=== PATIENT | female | born 1945 | race Caucasian/White ===

== ENCOUNTER 2017-10-20 00:42 | Inpatient (IN) | payer MEDICARE, OTHER ==
[~2017-10-20] VITALS: Ht 149.9 cm; Wt 77.3 kg
[~2017-10-20 00:42] MED LIST: ALBU8.5H8 INH; AMLO1TAB13 PO; ASPI-974 PO; ATOR40TA3 PO; BUPR300T53 PO; CALC1TAB PO; CLOP75TA15 PO; DIGO250T77 PO; DILT120C51 PO; DULO60CA45 PO; ESOM40CA30 PO; FLUT1DIS4 INH; FURO-150 PO; GABA800T2 PO; HYDR-3686 PO; HYDR-565 PO; LEVO75TA PO; LORA0.5T PO; METF500T PO; POTA10TA15 PO; POTA99TA25 PO; SPIIN INH
[2017-10-20] MEDS ORDERED: methylPREDNISolone sod succ 125mg/2ml vial IV ONE (01:15)
[2017-10-20] MEDS ORDERED: levoFLOXACIN 500mg tablet PO ONE (01:15)
[2017-10-20] MEDS ORDERED: normal saline 1000ML IV soln IVB ONE (01:15)
[2017-10-20] MEDS ORDERED: ipratropium/albuterol 3ml nebule NEB ONE (01:15)
[2017-10-20 03:33] LABS: BASOPHILS % (AUTO) 0.2 % (0-1); EOSINOPHILS # (AUTO) 0.2 X10'3 (0-0.9); EOSINOPHILS % (AUTO) 2.9 % (0-6); HEMATOCRIT 41.4 % (35.0-45.0); HEMOGLOBIN 13.6 g/dl (12.0-16.0); LYMPHOCYTES # (AUTO) 1.1 X10'3 (1.1-4.8); LYMPHOCYTES % (AUTO) 13.5 % (21-51); MEAN CORPUSCULAR HEMOGLOBIN 26.9 PG (27.0-31.0); MEAN CORPUSCULAR HGB CONC 32.8 % (33.0-36.5); MEAN PLATELET VOLUME 7.9 FL (7.4-10.4); MONOCYTES # (AUTO) 0.6 X10'3 (0-0.9); MONOCYTES % (AUTO) 7.8 % (2-12); NEUTROPHILS # (AUTO) 6.3 X10'3 (1.8-7.7); NEUTROPHILS % (AUTO) 75.6 % (42-75); PLATELET COUNT 185 X10'3 (140-440); RED BLOOD COUNT 5.05 X10'6 (4.20-5.60); RED CELL DISTRIBUTION WIDTH 13.5 % (11.5-14.5); WHITE BLOOD COUNT 8.3 X10'3 (4.5-11.0)
[2017-10-20 03:45] LABS: INR 1.1 INR; PARTIAL THROMBOPLASTIN TIME 25 SECONDS (22-32); PROTHROMBIN TIME 11.3 SECONDS (9.0-12.0)
[2017-10-20 03:58] LABS: ALANINE AMINOTRANSFERASE 31 U/L (12-78); ALBUMIN 3.1 G/DL (3.4-5.0); ALBUMIN/GLOBULIN RATIO 0.7 (1.1-1.5); ALKALINE PHOSPHATASE 85 IU/L (46-116); ANION GAP 5 (8-16); ASPARTATE AMINO TRANSFERASE 13 U/L (10-37); BILIRUBIN,TOTAL 0.3 MG/DL (0.1-1.0); BLOOD UREA NITROGEN 7 MG/DL (7-18); BUN/CREATININE RATIO 10.3 (6.6-38.0); CALCIUM 9.4 MG/DL (8.5-10.1); CHLORIDE 98 MMOL/L (99-107); CREATININE 0.68 MG/DL (0.40-0.90); GLUCOSE 173 MG/DL (70-104); MAGNESIUM 1.7 MG/DL (1.5-2.4); PHOSPHORUS 3.4 MG/DL (2.3-4.5); POTASSIUM 4.1 MMOL/L (3.5-5.1); SODIUM 138 MMOL/L (135-145); TOTAL CARBON DIOXIDE 35.1 MMOL/L (24-32); TOTAL PROTEIN 7.5 G/DL (6.4-8.2); eGFR 86 ML/MIN
[2017-10-20] MEDS ORDERED: ondansetron/PF 4mg/2ml inj IV PRN (05:40)
[2017-10-20] MEDS ORDERED: acetaminophen 325mg tablet PO PRN (05:40)
[2017-10-20] MEDS ORDERED: ipratropium/albuterol 3ml nebule NEB PRN (05:45)
[2017-10-20 06:35] LABS: CLARITY,URINE CLEAR (Clear); COLOR,URINE YELLOW (Yellow); GLUCOSE, URINE NEGATIVE (Neg); KETONES,URINE NEGATIVE (Neg); LEUKOCYTE ESTERASE ,URINE MODERATE (Neg); NITRITES, URINE POSITIVE (Neg); OCCULT BLOOD,URINE MODERATE (Neg); PH,URINE 7.5 (4.8-8.0); PROTEIN,URINE NEGATIVE (Neg); UROBILINOGEN,URINE 0.2 E.U/dL (0.2-1.0)
[2017-10-20 06:39] LABS: UA COLLECTION TYPE FOLEY CATH
[2017-10-20 06:55] LABS: BACTERIA,URINE FEW /HPF (Neg); RBC,URINE 0-2 /HPF (0-2); SQUAMOUS EPITHELIAL CELL,UR NONE SEEN /LPF (FEW)
[2017-10-20] MEDS: budesonide 0.5mg/2ml UD nebule IH SCH ×2 (08:38→20:00)
[2017-10-20] MEDS: duloxetine 30mg CAPSULE.DR PO SCH (09:10)
[2017-10-20] MEDS: levoTHYROXINE 75mcg tablet PO SCH (09:11)
[2017-10-20] MEDS: aspirin 325mg tablet PO SCH (09:11)
[2017-10-20] MEDS: pantoprazole 40mg Tablet.DR PO SCH (09:11)
[2017-10-20] MEDS: buPROPion SR 150mg tablet PO SCH ×2 (09:11→20:48)
[2017-10-20] MEDS: clopidogrel 75mg tablet PO SCH (09:11)
[2017-10-20] MEDS: furosemide 20MG tablet PO SCH (09:12)
[2017-10-20] MEDS: metFORMIN 500mg tablet PO SCH ×2 (09:12→20:48)
[2017-10-20] MEDS: digoxin 250mcg (0.25mg) tablet PO SCH (09:14)
[2017-10-20 10:31] LABS: ABG BASE EXCESS 5.4 mmol/L (-2.0-3.0); ABG HCO3 30.5 mmol/L (22.0-26.0); ABG OXYGEN SATURATION 88.1 % (95-98); ABG PCO2 (T) 46.3 mmHg (32.0-45.0); ABG PH (T) 7.437 (7.350-7.450); ABG PO2 (T) 52.4 mmHg (83-108); ALLEN'S TEST Positive; FCOHb 1.4 % (0.5-1.5); FLOW 3 L/min; FMetHb 0.3 % (0.3-1.12); FO2Hb 86.6 % (94-100); TOTAL HEMOGLOBIN 13.8 G/dl (12.0-16.0)
[2017-10-20 12:47] LABS: HEMOGLOBIN A1C 7.6 % (4.5-6.2)
[2017-10-20 19:00] VITALS: BP 173/102
[2017-10-20] MEDS: HYDROcodone/acetaminophen 10/325mg tab PO PRN ×2 (19:09→23:17)
[2017-10-20] MEDS: gabapentin 400mg capsule PO SCH (20:45)
[2017-10-20] MEDS: calcium carbonate/vitamin D3 tablet PO SCH (20:46)
[2017-10-20] MEDS: LORazepam 0.5 MG tablet PO SCH (20:46)
[2017-10-20] MEDS: atorvastatin 20mg tablet PO SCH (20:48)
[2017-10-20] MEDS ORDERED: albuterol 2.5 MG/3 ML nebule NEB PRN (21:00)
[2017-10-20 23:00] VITALS: BP 149/94
[2017-10-21 03:00] VITALS: BP 143/89
[2017-10-21] MEDS: HYDROcodone/acetaminophen 10/325mg tab PO PRN ×4 (03:31→19:12)
[2017-10-21 05:10] LABS: ANION GAP 9 (8-16); BLOOD UREA NITROGEN 11 MG/DL (7-18); BUN/CREATININE RATIO 16.2 (6.6-38.0); CALCIUM 9.9 MG/DL (8.5-10.1); CHLORIDE 92 MMOL/L (99-107); CREATININE 0.68 MG/DL (0.40-0.90); GLUCOSE 123 MG/DL (70-104); POTASSIUM 3.4 MMOL/L (3.5-5.1); SODIUM 135 MMOL/L (135-145); TOTAL CARBON DIOXIDE 34.5 MMOL/L (24-32); eGFR 86 ML/MIN
[2017-10-21 05:13] LABS: BASOPHILS % (AUTO) 0.1 % (0-1); EOSINOPHILS # (AUTO) 0.2 X10'3 (0-0.9); EOSINOPHILS % (AUTO) 2.3 % (0-6); HEMATOCRIT 40.8 % (35.0-45.0); HEMOGLOBIN 13.6 g/dl (12.0-16.0); LYMPHOCYTES # (AUTO) 1.8 X10'3 (1.1-4.8); LYMPHOCYTES % (AUTO) 21.4 % (21-51); MEAN CORPUSCULAR HGB CONC 33.3 % (33.0-36.5); MEAN CORPUSCULAR VOLUME 80.8 FL (78-98); MEAN PLATELET VOLUME 7.9 FL (7.4-10.4); MONOCYTES # (AUTO) 0.8 X10'3 (0-0.9); MONOCYTES % (AUTO) 9.7 % (2-12); NEUTROPHILS # (AUTO) 5.7 X10'3 (1.8-7.7); NEUTROPHILS % (AUTO) 66.5 % (42-75); PLATELET COUNT 212 X10'3 (140-440); RED BLOOD COUNT 5.05 X10'6 (4.20-5.60); RED CELL DISTRIBUTION WIDTH 13.4 % (11.5-14.5); WHITE BLOOD COUNT 8.6 X10'3 (4.5-11.0)
[2017-10-21 07:00] VITALS: BP 148/86
[2017-10-21] MEDS: aspirin 325mg tablet PO SCH (07:35)
[2017-10-21] MEDS: duloxetine 30mg CAPSULE.DR PO SCH (07:35)
[2017-10-21] MEDS: amLODIPine 5mg tablet PO SCH (07:35)
[2017-10-21] MEDS: calcium carbonate/vitamin D3 tablet PO SCH ×2 (07:37→19:09)
[2017-10-21] MEDS: LORazepam 0.5 MG tablet PO SCH ×3 (07:38→21:39)
[2017-10-21] MEDS: metFORMIN 500mg tablet PO SCH ×2 (07:38→19:13)
[2017-10-21] MEDS: buPROPion SR 150mg tablet PO SCH ×2 (07:38→19:15)
[2017-10-21] MEDS: gabapentin 400mg capsule PO SCH ×4 (07:38→21:41)
[2017-10-21] MEDS: pantoprazole 40mg Tablet.DR PO SCH (07:38)
[2017-10-21] MEDS: diltiazem CD 120mg capsule (once-daily) PO SCH (07:39)
[2017-10-21] MEDS: digoxin 250mcg (0.25mg) tablet PO SCH (07:40)
[2017-10-21] MEDS: furosemide 20MG tablet PO SCH (07:40)
[2017-10-21] MEDS: potassium chloride 10mEq ER tablet PO SCH (07:44)
[2017-10-21] MEDS: clopidogrel 75mg tablet PO SCH (07:44)
[2017-10-21] MEDS: levoFLOXACIN-Levaquin 500mg/D5 100 ML IV SCH (07:45)
[2017-10-21] MEDS: levoTHYROXINE 75mcg tablet PO SCH (07:45)
[2017-10-21] MEDS: ipratropium 0.5 MG/2.5ML nebule NEB SCH ×4 (09:00→20:40)
[2017-10-21] MEDS: hydrOXYzine 25 MG tablet PO PRN ×2 (09:14→19:14)
[2017-10-21] MEDS: budesonide 0.5mg/2ml UD nebule IH SCH ×2 (09:49→20:40)
[2017-10-21 11:00] VITALS: BP 151/86
[2017-10-21] MEDS: atorvastatin 20mg tablet PO SCH (21:40)
[2017-10-22] MEDS: ipratropium 0.5 MG/2.5ML nebule NEB SCH ×2 (02:36→08:54)
[2017-10-22 05:33] LABS: BASOPHILS % (AUTO) 0.3 % (0-1); EOSINOPHILS # (AUTO) 0.3 X10'3 (0-0.9); EOSINOPHILS % (AUTO) 3.5 % (0-6); LYMPHOCYTES # (AUTO) 2.4 X10'3 (1.1-4.8); LYMPHOCYTES % (AUTO) 24.2 % (21-51); MEAN CORPUSCULAR HEMOGLOBIN 27.1 PG (27.0-31.0); MEAN CORPUSCULAR HGB CONC 33.3 % (33.0-36.5); MEAN CORPUSCULAR VOLUME 81.4 FL (78-98); MEAN PLATELET VOLUME 7.8 FL (7.4-10.4); MONOCYTES # (AUTO) 0.8 X10'3 (0-0.9); NEUTROPHILS # (AUTO) 6.4 X10'3 (1.8-7.7); PLATELET COUNT 231 X10'3 (140-440); RED BLOOD COUNT 5.15 X10'6 (4.20-5.60); RED CELL DISTRIBUTION WIDTH 13.6 % (11.5-14.5); WHITE BLOOD COUNT 9.9 X10'3 (4.5-11.0)
[2017-10-22 05:56] LABS: ALBUMIN 3.1 G/DL (3.4-5.0); ANION GAP 8 (8-16); BLOOD UREA NITROGEN 16 MG/DL (7-18); BUN/CREATININE RATIO 21.3 (6.6-38.0); CALCIUM 9.4 MG/DL (8.5-10.1); CHLORIDE 90 MMOL/L (99-107); CREATININE 0.75 MG/DL (0.40-0.90); GLUCOSE 147 MG/DL (70-104); POTASSIUM 3.4 MMOL/L (3.5-5.1); SODIUM 132 MMOL/L (135-145); TOTAL CARBON DIOXIDE 34.4 MMOL/L (24-32); eGFR 76 ML/MIN
[2017-10-22 06:00] VITALS: BP 137/76
[2017-10-22] MEDS: gabapentin 400mg capsule PO SCH ×2 (07:26→13:24)
[2017-10-22] MEDS: aspirin 325mg tablet PO SCH (07:26)
[2017-10-22] MEDS: clopidogrel 75mg tablet PO SCH (07:26)
[2017-10-22] MEDS: metFORMIN 500mg tablet PO SCH (07:27)
[2017-10-22] MEDS: duloxetine 30mg CAPSULE.DR PO SCH (07:27)
[2017-10-22] MEDS: buPROPion SR 150mg tablet PO SCH (07:27)
[2017-10-22] MEDS: amLODIPine 5mg tablet PO SCH (07:28)
[2017-10-22] MEDS: digoxin 250mcg (0.25mg) tablet PO SCH (07:29)
[2017-10-22] MEDS: levoTHYROXINE 75mcg tablet PO SCH (07:30)
[2017-10-22] MEDS: potassium chloride 10mEq ER tablet PO SCH (07:30)
[2017-10-22] MEDS: calcium carbonate/vitamin D3 tablet PO SCH (07:30)
[2017-10-22] MEDS: furosemide 20MG tablet PO SCH (07:30)
[2017-10-22] MEDS: pantoprazole 40mg Tablet.DR PO SCH (07:30)
[2017-10-22] MEDS: LORazepam 0.5 MG tablet PO SCH ×2 (07:31→13:24)
[2017-10-22] MEDS: levoFLOXACIN-Levaquin 500mg/D5 100 ML IV SCH (07:31)
[2017-10-22] MEDS: diltiazem CD 120mg capsule (once-daily) PO SCH (07:32)
[2017-10-22] MEDS: budesonide 0.5mg/2ml UD nebule IH SCH (08:00)
[2017-10-22] MEDS ORDERED: NITR100C PO (09:01)
[2017-10-22 11:00] VITALS: BP 105/71
[2017-10-22 12:58] VITALS: BP 105/71
[2017-10-22] MEDS: HYDROcodone/acetaminophen 10/325mg tab PO PRN (13:25)
[2017-10-22] MEDS ORDERED: lactobacillus rhamnosus 10,000 MMU CELLS/CAPSULE PO SCH (20:00)
== END 2017-10-22 14:05 | disposition home health service (06) | DRG 189 ==
LOC: ER 00:42 → ED HOLD 05:36 → PCU 3S 15:35
PROVIDERS: ADMIT Family Medicine; ATTEND Internal Medicine
DX: J96.20 Acute and chronic respiratory failure, unspecified whether with hypoxia or hypercapnia (principal); G93.40 Encephalopathy, unspecified; I48.91 Unspecified atrial fibrillation; I11.0 Hypertensive heart disease with heart failure; I50.9 Heart failure, unspecified; J44.1 Chronic obstructive pulmonary disease with (acute) exacerbation; Z99.81 Dependence on supplemental oxygen; M06.9 Rheumatoid arthritis, unspecified; F32.9 Major depressive disorder, single episode, unspecified; F41.9 Anxiety disorder, unspecified; E11.9 Type 2 diabetes mellitus without complications; E78.5 Hyperlipidemia, unspecified; M19.90 Unspecified osteoarthritis, unspecified site; E03.9 Hypothyroidism, unspecified; E78.00 Pure hypercholesterolemia, unspecified; Z88.0 Allergy status to penicillin; Z88.1 Allergy status to other antibiotic agents; Z88.2 Allergy status to sulfonamides; Z88.8 Allergy status to other drugs, medicaments and biological substances; Z86.711 Personal history of pulmonary embolism; Z87.891 Personal history of nicotine dependence; Z82.49 Family history of ischemic heart disease and other diseases of the circulatory system; Z82.5 Family history of asthma and other chronic lower respiratory diseases; Z83.3 Family history of diabetes mellitus; Z84.89 Family history of other specified conditions; Z79.899 Other long term (current) drug therapy; Z79.82 Long term (current) use of aspirin
CPT/HCPCS: 36415; 36600; 71045; 80048; 80053; 80162; 81001; 82803; 82948; 83036; 83735; 83880; 84100; 84443; 84484; 85018; 85025; 85610; 85730; 87070; 87077; 87088; 87186; 87502; 87503; 93005; 94640; 94760; 96361; 96374; 97110; 97530; 99285; J1956; J2930; J7030; J7626; Q0177

== ENCOUNTER 2018-06-23 16:33 | Inpatient (IN) | payer MEDICARE, OTHER ==
[~2018-06-23] VITALS: Ht 149.9 cm; Wt 72.7 kg
[~2018-06-23 16:33] MED LIST changes: +ALBU8.5H8 IH; -AMLO1TAB13 PO; -CLOP75TA15 PO; -FURO-150 PO; +HYDR-4353 PO; -HYDR-565 PO; +INSU100V5 IJ; +LANTUS SQ; +LEVO500T89 PO; -METF500T PO; +NITR100C6 PO; +NYSPWD TP; -POTA99TA25 PO; +VALS160T2 PO
[2018-06-23] MEDS ORDERED: acetaminophen 325mg tablet PO STA (16:41)
[2018-06-23] MEDS ORDERED: CefTRIAXone 2gm/D5W 50ml 50 ML IV ONE (16:45)
[2018-06-23] MEDS ORDERED: normal saline 1000ML IV soln IV ONE (16:45)
[2018-06-23] MEDS ORDERED: MULT-1085 PO (17:12)
[2018-06-23] MEDS ORDERED: METH1TAB32 PO (17:13)
[2018-06-23] MEDS ORDERED: IRBE150T27 PO (17:14)
[2018-06-23 17:18] LABS: CLARITY,URINE CLOUDY (Clear); COLOR,URINE YELLOW (Yellow); GLUCOSE, URINE NEGATIVE (Neg); KETONES,URINE NEGATIVE (Neg); LEUKOCYTE ESTERASE ,URINE SMALL (Neg); NITRITES, URINE POSITIVE (Neg); OCCULT BLOOD,URINE MODERATE (Neg); PH,URINE 8.5 (4.8-8.0); PROTEIN,URINE NEGATIVE (Neg); UROBILINOGEN,URINE 0.2 E.U/dL (0.2-1.0)
[2018-06-23 17:19] LABS: BASOPHILS % (AUTO) 0.1 % (0-1); EOSINOPHILS # (AUTO) 0.1 X10'3 (0-0.9); EOSINOPHILS % (AUTO) 0.3 % (0-6); HEMATOCRIT 44.3 % (35.0-45.0); HEMOGLOBIN 14.1 g/dl (12.0-16.0); MEAN CORPUSCULAR HEMOGLOBIN 25.9 PG (27.0-31.0); MEAN CORPUSCULAR HGB CONC 31.8 % (33.0-36.5); MEAN CORPUSCULAR VOLUME 81.4 FL (78-98); MONOCYTES # (AUTO) 0.7 X10'3 (0-0.9); MONOCYTES % (AUTO) 3.4 % (2-12); NEUTROPHILS # (AUTO) 18.9 X10'3 (1.8-7.7); NEUTROPHILS % (AUTO) 91.2 % (42-75); PLATELET COUNT 253 X10'3 (140-440); RED BLOOD COUNT 5.44 X10'6 (4.20-5.60); WHITE BLOOD COUNT 20.8 X10'3 (4.5-11.0)
[2018-06-23 17:23] LABS: ALANINE AMINOTRANSFERASE 38 U/L (12-78); ALBUMIN 3.4 G/DL (3.4-5.0); ALBUMIN/GLOBULIN RATIO 0.7 (1.1-1.5); ALKALINE PHOSPHATASE 104 IU/L (46-116); ANION GAP 7 (8-16); ASPARTATE AMINO TRANSFERASE 31 U/L (10-37); BILIRUBIN,TOTAL 0.6 MG/DL (0.1-1.0); BLOOD UREA NITROGEN 6 MG/DL (7-18); BUN/CREATININE RATIO 8.3 (6.6-38.0); CALCIUM 9.3 MG/DL (8.5-10.1); CHLORIDE 94 MMOL/L (99-107); CREATININE 0.72 MG/DL (0.40-0.90); GLUCOSE 176 MG/DL (70-104); MAGNESIUM 1.3 MG/DL (1.5-2.4); POTASSIUM 3.7 MMOL/L (3.5-5.1); SODIUM 133 MMOL/L (135-145); TOTAL CARBON DIOXIDE 32.1 MMOL/L (24-32); eGFR 80 ML/MIN
[2018-06-23 17:31] LABS: UA COLLECTION TYPE FOLEY CATH
[2018-06-23 17:42] LABS: AMORPHOUS PHOSPHATES 3+; TRIPLE PHOSPHATE CRYST 4+ /HPF (NEGATIVE)
[2018-06-23 17:43] LABS: BACTERIA,URINE 4+ /HPF (Neg); MUCUS STRANDS FEW /LPF (Neg); SQUAMOUS EPITHELIAL CELL,UR FEW /LPF (FEW); TRANSITIONAL EPI CELLS,URINE FEW /HPF
[2018-06-23 17:44] LABS: RBC,URINE 0-2 /HPF (0-2)
[2018-06-23 18:06] LABS: PLATELET ESTIMATE NORMAL; TOTAL CELLS COUNTED 100
[2018-06-23 18:07] LABS: TOXIC GRANULATION 1+; TOXIC VACUOLATION FEW
[2018-06-23] MEDS ORDERED: albuterol 2.5 MG/3 ML nebule NEB ONE (19:05)
[2018-06-23] MEDS: normal saline 1000ml 1,000 ML IV SCH (19:19)
[2018-06-23] MEDS ORDERED: magnesium Cl slow-release 64mg tablet PO PRN (19:20)
[2018-06-23] MEDS ORDERED: ondansetron/PF 4mg/2ml inj IV PRN (19:20)
[2018-06-23] MEDS ORDERED: bisacodyl 10mg suppository rectal RC PRN (19:20)
[2018-06-23] MEDS ORDERED: acetaminophen 325mg tablet PO PRN (19:20)
[2018-06-23] MEDS ORDERED: diphenhydrAMINE 25mg capsule PO PRN (19:20)
[2018-06-23] MEDS ORDERED: acetaminophen 650mg rectal suppository RC PRN (19:20)
[2018-06-23] MEDS ORDERED: magnesium 4gm in 100ml NS 100 ML IV PRN (19:20)
[2018-06-23] MEDS ORDERED: diphenhydrAMINE 50 mg/ml inj IV PRN (19:20)
[2018-06-23] MEDS ORDERED: mag hydrox/Alum hydrox/simeth 30ml oral suspension PO PRN (19:20)
[2018-06-23] MEDS ORDERED: metoclopramide 5 mg/ml inj IV PRN (19:20)
[2018-06-23] MEDS ORDERED: magnesium hydroxide 30ml (MOM) UD suspension PO PRN (19:20)
[2018-06-23] MEDS ORDERED: morphine 2 MG/ML inj. syringe IV PRN (19:20)
[2018-06-23] MEDS ORDERED: HYDROmorphone 1 mg/ml syringe IV PRN (19:20)
[2018-06-23] MEDS ORDERED: magnesium 1gm/100ml D5W IVPB 100 ML IV PRN (19:20)
[2018-06-23] MEDS ORDERED: dextrose 50%-water 50ml dispensing syringe IV PRN ×2 (19:25)
[2018-06-23] MEDS ORDERED: dextrose ORAL solution 15 GM/59 ML bottle PO PRN ×2 (19:25)
[2018-06-23] MEDS ORDERED: glucagon, human recombinant 1mg kit SUBCUT PRN (19:25)
[2018-06-23] MEDS ORDERED: MESSAGE TO PHARMACY PO ONE ×2 (19:25→23:55)
[2018-06-23 19:55] LABS: PHOSPHORUS 2.5 MG/DL (2.3-4.5); TROPONIN I < 0.04 NG/ML (0.0-0.05)
[2018-06-23] MEDS ORDERED: CefTRIAXone/D5W-Rocephin 1gm 50 ML IV SCH (20:00)
[2018-06-23] MEDS ORDERED: temazepam 15mg capsule PO PRN (21:00)
[2018-06-23 21:26] LABS: INR 1.1 INR; PARTIAL THROMBOPLASTIN TIME 25 SECONDS (22-32); PROTHROMBIN TIME 11.4 SECONDS (9.0-12.0)
[2018-06-23] MEDS: methylPREDNISolone sod succ 125mg/2ml vial IV SCH (22:53)
[2018-06-23] MEDS: docusate sod 100mg capsule PO SCH (22:53)
[2018-06-23 23:00] VITALS: BP 114/75
[2018-06-23] MEDS: azithromycin/NS 500mg/250ml 250 ML IV SCH (23:05)
[2018-06-24] MEDS ORDERED: albuterol 2.5 MG/3 ML nebule NEB PRN ×2 (00:20→16:20)
[2018-06-24] MEDS: insulin glargine (Lantus) pen - multi-dose SQ SCH ×2 (00:38→21:53)
[2018-06-24 03:00] VITALS: BP 134/87
[2018-06-24] MEDS: normal saline 1000ml 1,000 ML IV SCH (05:51)
[2018-06-24] MEDS: CefTRIAXone/D5W-Rocephin 1gm 50 ML IV SCH ×2 (05:51→18:18)
[2018-06-24 06:35] LABS: BASOPHILS % (AUTO) 0 % (0-1); EOSINOPHILS # (AUTO) 0.2 X10'3 (0-0.9); EOSINOPHILS % (AUTO) 0.9 % (0-6); HEMATOCRIT 39.9 % (35.0-45.0); HEMOGLOBIN 12.5 g/dl (12.0-16.0); LYMPHOCYTES # (AUTO) 0.8 X10'3 (1.1-4.8); LYMPHOCYTES % (AUTO) 3.9 % (21-51); MEAN CORPUSCULAR HEMOGLOBIN 25.9 PG (27.0-31.0); MEAN CORPUSCULAR HGB CONC 31.4 % (33.0-36.5); MEAN CORPUSCULAR VOLUME 82.3 FL (78-98); MEAN PLATELET VOLUME 8.6 FL (7.4-10.4); MONOCYTES # (AUTO) 0.2 X10'3 (0-0.9); MONOCYTES % (AUTO) 0.9 % (2-12); NEUTROPHILS # (AUTO) 20.2 X10'3 (1.8-7.7); NEUTROPHILS % (AUTO) 94.3 % (42-75); PLATELET COUNT 205 X10'3 (140-440); RED BLOOD COUNT 4.85 X10'6 (4.20-5.60); RED CELL DISTRIBUTION WIDTH 14.3 % (11.5-14.5); WHITE BLOOD COUNT 21.4 X10'3 (4.5-11.0)
[2018-06-24 06:47] LABS: ALANINE AMINOTRANSFERASE 43 U/L (12-78); ALBUMIN/GLOBULIN RATIO 0.7 (1.1-1.5); ALKALINE PHOSPHATASE 84 IU/L (46-116); ANION GAP 6 (8-16); ASPARTATE AMINO TRANSFERASE 23 U/L (10-37); BILIRUBIN,TOTAL 0.4 MG/DL (0.1-1.0); BLOOD UREA NITROGEN 9 MG/DL (7-18); BUN/CREATININE RATIO 12.3 (6.6-38.0); CALCIUM 9.1 MG/DL (8.5-10.1); CHLORIDE 100 MMOL/L (99-107); CREATININE 0.73 MG/DL (0.40-0.90); GLUCOSE 277 MG/DL (70-104); MAGNESIUM 1.5 MG/DL (1.5-2.4); POTASSIUM 3.4 MMOL/L (3.5-5.1); SODIUM 139 MMOL/L (135-145); TOTAL CARBON DIOXIDE 32.8 MMOL/L (24-32); TOTAL PROTEIN 7.6 G/DL (6.4-8.2); eGFR 79 ML/MIN
[2018-06-24 07:21] VITALS: BP 151/94
[2018-06-24] MEDS: albuterol 2.5 MG/3 ML nebule NEB SCH ×4 (07:35→19:58)
[2018-06-24] MEDS: docusate sod 100mg capsule PO SCH ×2 (08:28→20:19)
[2018-06-24] MEDS: HYDROcodone/acetaminophen 10/325mg tab PO PRN ×2 (08:28→16:38)
[2018-06-24] MEDS: methylPREDNISolone sod succ 125mg/2ml vial IV SCH ×2 (08:29→20:25)
[2018-06-24] MEDS: insulin Lispro (HumaLOG) vial - multi-dose SQ SCH ×2 (08:52→19:47)
[2018-06-24 11:00] VITALS: BP 136/77
[2018-06-24 15:00] VITALS: BP 136/75
[2018-06-24] MEDS ORDERED: HYDROcodone/acetaminophen 10/325mg tab PO PRN (16:05)
[2018-06-24] MEDS: aspirin 325mg tablet PO SCH (16:05)
[2018-06-24] MEDS ORDERED: hydrOXYzine 25 MG tablet PO PRN (16:05)
[2018-06-24] MEDS ORDERED: ipratropium 0.5 MG/2.5ML nebule IH PRN (16:20)
[2018-06-24] MEDS: levoTHYROXINE 75mcg tablet PO SCH (18:18)
[2018-06-24] MEDS: gabapentin 400mg capsule PO SCH ×2 (18:18→20:20)
[2018-06-24 19:00] VITALS: BP 152/89
[2018-06-24] MEDS: budesonide 0.5mg/2ml UD nebule IH SCH (19:58)
[2018-06-24] MEDS: calcium carbonate/vitamin D3 tablet PO SCH (20:19)
[2018-06-24] MEDS: atorvastatin 20mg tablet PO SCH (20:19)
[2018-06-24] MEDS: lactobacillus rhamnosus 10,000 MMU CELLS/CAPSULE PO SCH (20:20)
[2018-06-24] MEDS: LORazepam 0.5 MG tablet PO SCH (20:25)
[2018-06-24] MEDS: azithromycin/NS 500mg/250ml 250 ML IV SCH (20:28)
[2018-06-24] MEDS ORDERED: insulin glargine (Lantus) pen - multi-dose SQ SCH (21:00)
[2018-06-24 23:00] VITALS: BP 152/89
[2018-06-25 03:00] VITALS: BP 155/96
[2018-06-25] MEDS: CefTRIAXone/D5W-Rocephin 1gm 50 ML IV SCH ×2 (05:37→17:22)
[2018-06-25 05:39] LABS: BASOPHILS % (AUTO) 0 % (0-1); EOSINOPHILS % (AUTO) 0 % (0-6); HEMATOCRIT 38.4 % (35.0-45.0); LYMPHOCYTES # (AUTO) 0.9 X10'3 (1.1-4.8); LYMPHOCYTES % (AUTO) 5.1 % (21-51); MEAN CORPUSCULAR HEMOGLOBIN 25.8 PG (27.0-31.0); MEAN CORPUSCULAR HGB CONC 31.3 % (33.0-36.5); MEAN CORPUSCULAR VOLUME 82.4 FL (78-98); MEAN PLATELET VOLUME 8.5 FL (7.4-10.4); MONOCYTES # (AUTO) 0.3 X10'3 (0-0.9); MONOCYTES % (AUTO) 1.6 % (2-12); NEUTROPHILS % (AUTO) 93.3 % (42-75); PLATELET COUNT 231 X10'3 (140-440); RED BLOOD COUNT 4.66 X10'6 (4.20-5.60); RED CELL DISTRIBUTION WIDTH 14.2 % (11.5-14.5); WHITE BLOOD COUNT 17.1 X10'3 (4.5-11.0)
[2018-06-25 06:12] LABS: ALANINE AMINOTRANSFERASE 39 U/L (12-78); ALBUMIN 2.7 G/DL (3.4-5.0); ALBUMIN/GLOBULIN RATIO 0.6 (1.1-1.5); ALKALINE PHOSPHATASE 78 IU/L (46-116); ANION GAP 4 (8-16); ASPARTATE AMINO TRANSFERASE 18 U/L (10-37); BILIRUBIN,TOTAL 0.3 MG/DL (0.1-1.0); BLOOD UREA NITROGEN 13 MG/DL (7-18); BUN/CREATININE RATIO 19.1 (6.6-38.0); CALCIUM 9.6 MG/DL (8.5-10.1); CHLORIDE 100 MMOL/L (99-107); CREATININE 0.68 MG/DL (0.40-0.90); GLUCOSE 245 MG/DL (70-104); MAGNESIUM 1.7 MG/DL (1.5-2.4); POTASSIUM 3.3 MMOL/L (3.5-5.1); SODIUM 140 MMOL/L (135-145); TOTAL CARBON DIOXIDE 35.6 MMOL/L (24-32); TOTAL PROTEIN 7.3 G/DL (6.4-8.2); eGFR 85 ML/MIN
[2018-06-25 07:00] VITALS: BP 156/103
[2018-06-25] MEDS: duloxetine 30mg CAPSULE.DR PO SCH (07:17)
[2018-06-25] MEDS: aspirin 325mg tablet PO SCH (07:17)
[2018-06-25] MEDS: calcium carbonate/vitamin D3 tablet PO SCH ×2 (07:17→21:16)
[2018-06-25] MEDS: levoTHYROXINE 75mcg tablet PO SCH (07:18)
[2018-06-25] MEDS: lactobacillus rhamnosus 10,000 MMU CELLS/CAPSULE PO SCH ×2 (07:18→21:16)
[2018-06-25] MEDS: pantoprazole 40mg Tablet.DR PO SCH (07:18)
[2018-06-25] MEDS: docusate sod 100mg capsule PO SCH ×2 (07:19→19:50)
[2018-06-25] MEDS: LORazepam 0.5 MG tablet PO SCH ×3 (07:19→21:16)
[2018-06-25] MEDS: potassium chloride 10mEq ER tablet PO SCH (07:19)
[2018-06-25] MEDS: gabapentin 400mg capsule PO SCH ×4 (07:19→21:16)
[2018-06-25] MEDS: methylPREDNISolone sod succ 125mg/2ml vial IV SCH (07:19)
[2018-06-25] MEDS: HYDROcodone/acetaminophen 10/325mg tab PO PRN ×2 (07:20→12:16)
[2018-06-25] MEDS: digoxin 250mcg (0.25mg) tablet PO SCH (07:33)
[2018-06-25] MEDS: albuterol 2.5 MG/3 ML nebule NEB SCH ×4 (07:37→21:00)
[2018-06-25] MEDS: budesonide 0.5mg/2ml UD nebule IH SCH ×2 (07:37→20:00)
[2018-06-25] MEDS ORDERED: buPROPion SR 150mg tablet PO SCH (08:00)
[2018-06-25] MEDS ORDERED: diltiazem CD 120mg capsule (once-daily) PO SCH (08:00)
[2018-06-25] MEDS: insulin Lispro (HumaLOG) vial - multi-dose SQ SCH ×3 (08:39→19:57)
[2018-06-25 11:00] VITALS: BP 157/97
[2018-06-25 15:00] VITALS: BP 155/98
[2018-06-25 19:00] VITALS: BP 164/110
[2018-06-25] MEDS: atorvastatin 20mg tablet PO SCH (21:16)
[2018-06-25] MEDS: azithromycin/NS 500mg/250ml 250 ML IV SCH (21:17)
[2018-06-25] MEDS: insulin glargine (Lantus) pen - multi-dose SQ SCH (21:47)
[2018-06-25] MEDS ORDERED: diltiazem-NS 100mg/100ml 100 ML IV SCH (22:35)
[2018-06-25 23:00] VITALS: BP 147/84
[2018-06-26] VITALS (10 sets, daily range): BP systolic 113–152; BP diastolic 84–106
[2018-06-26] MEDS: diltiazem-NS 100mg/100ml 100 ML IV SCH ×2 (00:35→08:47)
[2018-06-26] MEDS: CefTRIAXone/D5W-Rocephin 1gm 50 ML IV SCH ×2 (04:36→17:54)
[2018-06-26] MEDS: HYDROcodone/acetaminophen 10/325mg tab PO PRN ×3 (04:48→21:30)
[2018-06-26 05:16] LABS: BASOPHILS # (AUTO) 0.1 X10'3 (0-0.2); BASOPHILS % (AUTO) 0.6 % (0-1); EOSINOPHILS # (AUTO) 0.1 X10'3 (0-0.9); EOSINOPHILS % (AUTO) 0.4 % (0-6); HEMATOCRIT 41.6 % (35.0-45.0); HEMOGLOBIN 13.1 g/dl (12.0-16.0); LYMPHOCYTES # (AUTO) 1.8 X10'3 (1.1-4.8); LYMPHOCYTES % (AUTO) 9.8 % (21-51); MEAN CORPUSCULAR HGB CONC 31.5 % (33.0-36.5); MEAN CORPUSCULAR VOLUME 82.4 FL (78-98); MEAN PLATELET VOLUME 8.3 FL (7.4-10.4); MONOCYTES # (AUTO) 0.9 X10'3 (0-0.9); MONOCYTES % (AUTO) 4.9 % (2-12); NEUTROPHILS # (AUTO) 15.4 X10'3 (1.8-7.7); NEUTROPHILS % (AUTO) 84.3 % (42-75); PLATELET COUNT 264 X10'3 (140-440); RED BLOOD COUNT 5.05 X10'6 (4.20-5.60); RED CELL DISTRIBUTION WIDTH 13.9 % (11.5-14.5); WHITE BLOOD COUNT 18.3 X10'3 (4.5-11.0)
[2018-06-26 05:41] LABS: ALANINE AMINOTRANSFERASE 43 U/L (12-78); ALBUMIN 2.9 G/DL (3.4-5.0); ALBUMIN/GLOBULIN RATIO 0.6 (1.1-1.5); ALKALINE PHOSPHATASE 73 IU/L (46-116); ANION GAP 5 (8-16); ASPARTATE AMINO TRANSFERASE 19 U/L (10-37); BILIRUBIN,TOTAL 0.3 MG/DL (0.1-1.0); BLOOD UREA NITROGEN 12 MG/DL (7-18); BUN/CREATININE RATIO 17.6 (6.6-38.0); CALCIUM 9.5 MG/DL (8.5-10.1); CHLORIDE 99 MMOL/L (99-107); CREATININE 0.68 MG/DL (0.40-0.90); GLUCOSE 174 MG/DL (70-104); MAGNESIUM 1.6 MG/DL (1.5-2.4); POTASSIUM 3.2 MMOL/L (3.5-5.1); SODIUM 141 MMOL/L (135-145); TOTAL PROTEIN 7.6 G/DL (6.4-8.2); eGFR 85 ML/MIN
[2018-06-26] MEDS: docusate sod 100mg capsule PO SCH ×2 (07:31→19:48)
[2018-06-26] MEDS: aspirin 325mg tablet PO SCH (07:31)
[2018-06-26] MEDS: gabapentin 400mg capsule PO SCH ×4 (07:31→21:30)
[2018-06-26] MEDS: potassium chloride 10mEq ER tablet PO SCH (07:32)
[2018-06-26] MEDS: duloxetine 30mg CAPSULE.DR PO SCH (07:32)
[2018-06-26] MEDS: buPROPion SR 150mg tablet PO SCH ×2 (07:33→21:31)
[2018-06-26] MEDS: lactobacillus rhamnosus 10,000 MMU CELLS/CAPSULE PO SCH ×2 (07:33→21:31)
[2018-06-26] MEDS: levoTHYROXINE 75mcg tablet PO SCH (07:33)
[2018-06-26] MEDS: pantoprazole 40mg Tablet.DR PO SCH (07:33)
[2018-06-26] MEDS: LORazepam 0.5 MG tablet PO SCH ×3 (07:33→21:30)
[2018-06-26] MEDS: digoxin 250mcg (0.25mg) tablet PO SCH (07:34)
[2018-06-26] MEDS: calcium carbonate/vitamin D3 tablet PO SCH ×2 (07:34→21:30)
[2018-06-26] MEDS: albuterol 2.5 MG/3 ML nebule NEB SCH ×4 (08:00→20:03)
[2018-06-26] MEDS: budesonide 0.5mg/2ml UD nebule IH SCH ×2 (08:00→20:03)
[2018-06-26] MEDS: insulin Lispro (HumaLOG) vial - multi-dose SQ SCH ×3 (08:53→19:47)
[2018-06-26] MEDS ORDERED: potassium Cl 20 mEq SR tablet PO PRN (09:30)
[2018-06-26] MEDS ORDERED: potassium Cl 40MEQ/NS 500ml 500 ML IV PRN ×2 (09:30)
[2018-06-26] MEDS: diltiazem-D5W 125mg/125ml 125 ML IV SCH ×2 (10:45→18:49)
[2018-06-26] MEDS: potassium Cl 20 mEq SR tablet PO PRN ×2 (13:45→17:54)
[2018-06-26] MEDS: LORazepam 2 mg/ml vial IV PRN (15:40)
[2018-06-26] MEDS: atorvastatin 20mg tablet PO SCH (21:29)
[2018-06-26] MEDS: azithromycin/NS 500mg/250ml 250 ML IV SCH (21:29)
[2018-06-26] MEDS: sotalol 80mg tablet PO SCH (21:30)
[2018-06-26] MEDS: insulin glargine (Lantus) pen - multi-dose SQ SCH (21:35)
[2018-06-27] VITALS (11 sets, daily range): BP systolic 97–148; BP diastolic 74–115
[2018-06-27] MEDS ORDERED: diltiazem-NS 100mg/100ml 100 ML IV SCH (01:30)
[2018-06-27] MEDS: diltiazem-D5W 125mg/125ml 125 ML IV SCH ×2 (02:00→11:58)
[2018-06-27] MEDS: CefTRIAXone/D5W-Rocephin 1gm 50 ML IV SCH ×2 (04:47→16:19)
[2018-06-27 05:25] LABS: BASOPHILS # (AUTO) 0.1 X10'3 (0-0.2); BASOPHILS % (AUTO) 0.8 % (0-1); EOSINOPHILS # (AUTO) 0.4 X10'3 (0-0.9); EOSINOPHILS % (AUTO) 2.1 % (0-6); HEMATOCRIT 42.4 % (35.0-45.0); HEMOGLOBIN 13.3 g/dl (12.0-16.0); LYMPHOCYTES # (AUTO) 2.5 X10'3 (1.1-4.8); LYMPHOCYTES % (AUTO) 14.1 % (21-51); MEAN CORPUSCULAR HEMOGLOBIN 25.7 PG (27.0-31.0); MEAN CORPUSCULAR HGB CONC 31.4 % (33.0-36.5); MEAN CORPUSCULAR VOLUME 81.8 FL (78-98); MEAN PLATELET VOLUME 8.2 FL (7.4-10.4); MONOCYTES # (AUTO) 1.6 X10'3 (0-0.9); MONOCYTES % (AUTO) 9.5 % (2-12); NEUTROPHILS # (AUTO) 12.8 X10'3 (1.8-7.7); NEUTROPHILS % (AUTO) 73.5 % (42-75); PLATELET COUNT 285 X10'3 (140-440); RED BLOOD COUNT 5.18 X10'6 (4.20-5.60); RED CELL DISTRIBUTION WIDTH 14.2 % (11.5-14.5); WHITE BLOOD COUNT 17.4 X10'3 (4.5-11.0)
[2018-06-27 05:53] LABS: ALANINE AMINOTRANSFERASE 51 U/L (12-78); ALBUMIN 2.8 G/DL (3.4-5.0); ALBUMIN/GLOBULIN RATIO 0.6 (1.1-1.5); ALKALINE PHOSPHATASE 75 IU/L (46-116); ANION GAP 6 (8-16); ASPARTATE AMINO TRANSFERASE 21 U/L (10-37); BILIRUBIN,TOTAL 0.5 MG/DL (0.1-1.0); BLOOD UREA NITROGEN 13 MG/DL (7-18); BUN/CREATININE RATIO 18.8 (6.6-38.0); CALCIUM 9.3 MG/DL (8.5-10.1); CHLORIDE 92 MMOL/L (99-107); CREATININE 0.69 MG/DL (0.40-0.90); GLUCOSE 117 MG/DL (70-104); MAGNESIUM 1.4 MG/DL (1.5-2.4); POTASSIUM 3.6 MMOL/L (3.5-5.1); SODIUM 132 MMOL/L (135-145); TOTAL CARBON DIOXIDE 34.2 MMOL/L (24-32); TOTAL PROTEIN 7.2 G/DL (6.4-8.2); eGFR 84 ML/MIN
[2018-06-27] MEDS: gabapentin 400mg capsule PO SCH ×4 (07:36→20:23)
[2018-06-27] MEDS: docusate sod 100mg capsule PO SCH ×2 (07:36→20:00)
[2018-06-27] MEDS: LORazepam 0.5 MG tablet PO SCH ×3 (07:37→20:26)
[2018-06-27] MEDS: duloxetine 30mg CAPSULE.DR PO SCH (07:37)
[2018-06-27] MEDS: potassium chloride 10mEq ER tablet PO SCH (07:37)
[2018-06-27] MEDS: digoxin 250mcg (0.25mg) tablet PO SCH (07:37)
[2018-06-27] MEDS: buPROPion SR 150mg tablet PO SCH ×2 (07:37→20:23)
[2018-06-27] MEDS: pantoprazole 40mg Tablet.DR PO SCH (07:37)
[2018-06-27] MEDS: calcium carbonate/vitamin D3 tablet PO SCH ×2 (07:37→20:23)
[2018-06-27] MEDS: sotalol 80mg tablet PO SCH ×2 (07:38→20:25)
[2018-06-27] MEDS: levoTHYROXINE 75mcg tablet PO SCH (07:38)
[2018-06-27] MEDS: aspirin 325mg tablet PO SCH (07:38)
[2018-06-27] MEDS: albuterol 2.5 MG/3 ML nebule NEB SCH ×4 (07:39→20:09)
[2018-06-27] MEDS: budesonide 0.5mg/2ml UD nebule IH SCH ×2 (07:39→20:00)
[2018-06-27] MEDS: lactobacillus rhamnosus 10,000 MMU CELLS/CAPSULE PO SCH ×2 (07:41→20:25)
[2018-06-27] MEDS: insulin Lispro (HumaLOG) vial - multi-dose SQ SCH ×3 (09:23→19:10)
[2018-06-27] MEDS ORDERED: magnesium 4gm in 100ml NS 100 ML IV PRN (09:45)
[2018-06-27] MEDS: HYDROcodone/acetaminophen 10/325mg tab PO PRN ×3 (12:04→23:39)
[2018-06-27] MEDS: LORazepam 2 mg/ml vial IV PRN (12:04)
[2018-06-27] MEDS: diltiazem CD 120mg capsule (once-daily) PO SCH (12:52)
[2018-06-27] MEDS: potassium Cl 20 mEq SR tablet PO PRN ×2 (14:36→22:46)
[2018-06-27] MEDS ORDERED: enoxaparin 60mg/0.6ml syringe SUBCUT SCH (20:00)
[2018-06-27] MEDS: azithromycin/NS 500mg/250ml 250 ML IV SCH (20:23)
[2018-06-27] MEDS: apixaban 5mg tablet PO SCH (20:24)
[2018-06-27] MEDS: atorvastatin 20mg tablet PO SCH (20:25)
[2018-06-27] MEDS: insulin glargine (Lantus) pen - multi-dose SQ SCH (21:55)
[2018-06-28 02:00] VITALS: BP 141/83
[2018-06-28] MEDS: potassium Cl 20 mEq SR tablet PO PRN (03:03)
[2018-06-28] MEDS: HYDROcodone/acetaminophen 10/325mg tab PO PRN ×2 (04:04→19:42)
[2018-06-28] MEDS: CefTRIAXone/D5W-Rocephin 1gm 50 ML IV SCH ×2 (05:17→17:25)
[2018-06-28 06:00] VITALS: BP 139/85
[2018-06-28] MEDS: budesonide 0.5mg/2ml UD nebule IH SCH ×2 (07:59→20:25)
[2018-06-28] MEDS: albuterol 2.5 MG/3 ML nebule NEB SCH ×4 (08:00→20:25)
[2018-06-28] MEDS: docusate sod 100mg capsule PO SCH ×2 (08:00→19:44)
[2018-06-28] MEDS: duloxetine 30mg CAPSULE.DR PO SCH (08:38)
[2018-06-28] MEDS: lactobacillus rhamnosus 10,000 MMU CELLS/CAPSULE PO SCH ×2 (08:38→19:42)
[2018-06-28] MEDS: potassium chloride 10mEq ER tablet PO SCH (08:38)
[2018-06-28] MEDS: aspirin 325mg tablet PO SCH (08:38)
[2018-06-28] MEDS: buPROPion SR 150mg tablet PO SCH ×2 (08:38→19:42)
[2018-06-28] MEDS: LORazepam 0.5 MG tablet PO SCH ×3 (08:38→20:53)
[2018-06-28] MEDS: pantoprazole 40mg Tablet.DR PO SCH (08:38)
[2018-06-28] MEDS: levoTHYROXINE 75mcg tablet PO SCH (08:39)
[2018-06-28] MEDS: sotalol 80mg tablet PO SCH ×2 (08:39→19:42)
[2018-06-28] MEDS: apixaban 5mg tablet PO SCH ×2 (08:39→19:42)
[2018-06-28] MEDS: gabapentin 400mg capsule PO SCH ×4 (08:39→20:53)
[2018-06-28] MEDS: calcium carbonate/vitamin D3 tablet PO SCH ×2 (08:39→19:42)
[2018-06-28] MEDS: diltiazem CD 120mg capsule (once-daily) PO SCH (08:39)
[2018-06-28] MEDS: insulin Lispro (HumaLOG) vial - multi-dose SQ SCH ×3 (09:48→20:52)
[2018-06-28 11:00] VITALS: BP 128/83
[2018-06-28 12:05] LABS: BASOPHILS % (AUTO) 0.2 % (0-1); EOSINOPHILS # (AUTO) 0.3 X10'3 (0-0.9); EOSINOPHILS % (AUTO) 1.6 % (0-6); HEMATOCRIT 43.2 % (35.0-45.0); HEMOGLOBIN 13.7 g/dl (12.0-16.0); LYMPHOCYTES # (AUTO) 2.1 X10'3 (1.1-4.8); LYMPHOCYTES % (AUTO) 11.8 % (21-51); MEAN CORPUSCULAR HEMOGLOBIN 25.9 PG (27.0-31.0); MEAN CORPUSCULAR HGB CONC 31.8 % (33.0-36.5); MEAN CORPUSCULAR VOLUME 81.5 FL (78-98); MEAN PLATELET VOLUME 7.8 FL (7.4-10.4); MONOCYTES # (AUTO) 0.7 X10'3 (0-0.9); NEUTROPHILS % (AUTO) 82.4 % (42-75); PLATELET COUNT 285 X10'3 (140-440); RED BLOOD COUNT 5.29 X10'6 (4.20-5.60); RED CELL DISTRIBUTION WIDTH 13.9 % (11.5-14.5); WHITE BLOOD COUNT 18.2 X10'3 (4.5-11.0)
[2018-06-28 12:20] LABS: ALANINE AMINOTRANSFERASE 46 U/L (12-78); ALBUMIN 2.7 G/DL (3.4-5.0); ALBUMIN/GLOBULIN RATIO 0.6 (1.1-1.5); ALKALINE PHOSPHATASE 77 IU/L (46-116); ANION GAP 5 (8-16); ASPARTATE AMINO TRANSFERASE 21 U/L (10-37); BILIRUBIN,TOTAL 0.4 MG/DL (0.1-1.0); BLOOD UREA NITROGEN 12 MG/DL (7-18); CHLORIDE 95 MMOL/L (99-107); CREATININE 0.63 MG/DL (0.40-0.90); GLUCOSE 188 MG/DL (70-104); MAGNESIUM 1.9 MG/DL (1.5-2.4); POTASSIUM 4.1 MMOL/L (3.5-5.1); SODIUM 131 MMOL/L (135-145); TOTAL CARBON DIOXIDE 31.5 MMOL/L (24-32); TOTAL PROTEIN 7.1 G/DL (6.4-8.2); eGFR > 90 ML/MIN
[2018-06-28 15:00] VITALS: BP 128/87
[2018-06-28 19:00] VITALS: BP 137/92
[2018-06-28] MEDS: insulin glargine (Lantus) pen - multi-dose SQ SCH (20:52)
[2018-06-28] MEDS: atorvastatin 20mg tablet PO SCH (20:53)
[2018-06-28] MEDS: azithromycin/NS 500mg/250ml 250 ML IV SCH ×2 (20:53→22:01)
[2018-06-28 22:30] VITALS: BP 127/81
[2018-06-29 02:52] VITALS: BP 164/93
[2018-06-29] MEDS: CefTRIAXone/D5W-Rocephin 1gm 50 ML IV SCH (05:21)
[2018-06-29 05:53] LABS: BASOPHILS % (AUTO) 0.3 % (0-1); EOSINOPHILS # (AUTO) 0.4 X10'3 (0-0.9); EOSINOPHILS % (AUTO) 2.9 % (0-6); HEMATOCRIT 41.4 % (35.0-45.0); HEMOGLOBIN 13.1 g/dl (12.0-16.0); LYMPHOCYTES # (AUTO) 2.2 X10'3 (1.1-4.8); LYMPHOCYTES % (AUTO) 14.3 % (21-51); MEAN CORPUSCULAR HEMOGLOBIN 25.9 PG (27.0-31.0); MEAN CORPUSCULAR HGB CONC 31.6 % (33.0-36.5); MEAN CORPUSCULAR VOLUME 81.9 FL (78-98); MEAN PLATELET VOLUME 8.1 FL (7.4-10.4); MONOCYTES % (AUTO) 6.8 % (2-12); NEUTROPHILS # (AUTO) 11.5 X10'3 (1.8-7.7); NEUTROPHILS % (AUTO) 75.7 % (42-75); PLATELET COUNT 275 X10'3 (140-440); RED BLOOD COUNT 5.05 X10'6 (4.20-5.60); RED CELL DISTRIBUTION WIDTH 14.1 % (11.5-14.5); WHITE BLOOD COUNT 15.1 X10'3 (4.5-11.0)
[2018-06-29 06:00] VITALS: BP 160/91
[2018-06-29 06:14] LABS: ALANINE AMINOTRANSFERASE 41 U/L (12-78); ALBUMIN 2.4 G/DL (3.4-5.0); ALBUMIN/GLOBULIN RATIO 0.5 (1.1-1.5); ALKALINE PHOSPHATASE 84 IU/L (46-116); ANION GAP 4 (8-16); ASPARTATE AMINO TRANSFERASE 20 U/L (10-37); BILIRUBIN,TOTAL 0.4 MG/DL (0.1-1.0); BLOOD UREA NITROGEN 11 MG/DL (7-18); BUN/CREATININE RATIO 20.8 (6.6-38.0); CHLORIDE 98 MMOL/L (99-107); CREATININE 0.53 MG/DL (0.40-0.90); GLUCOSE 147 MG/DL (70-104); MAGNESIUM 1.6 MG/DL (1.5-2.4); POTASSIUM 3.6 MMOL/L (3.5-5.1); SODIUM 136 MMOL/L (135-145); TOTAL CARBON DIOXIDE 34.1 MMOL/L (24-32); TOTAL PROTEIN 6.8 G/DL (6.4-8.2); eGFR > 90 ML/MIN
[2018-06-29] MEDS: budesonide 0.5mg/2ml UD nebule IH SCH (07:28)
[2018-06-29] MEDS: albuterol 2.5 MG/3 ML nebule NEB SCH ×4 (07:29→15:13)
[2018-06-29] MEDS: buPROPion SR 150mg tablet PO SCH (08:00)
[2018-06-29] MEDS: docusate sod 100mg capsule PO SCH (08:00)
[2018-06-29] MEDS: lactobacillus rhamnosus 10,000 MMU CELLS/CAPSULE PO SCH (08:00)
[2018-06-29] MEDS: duloxetine 30mg CAPSULE.DR PO SCH (08:00)
[2018-06-29] MEDS: aspirin 325mg tablet PO SCH (08:00)
[2018-06-29] MEDS: potassium chloride 10mEq ER tablet PO SCH (08:40)
[2018-06-29] MEDS: gabapentin 400mg capsule PO SCH ×2 (08:40→12:26)
[2018-06-29] MEDS: calcium carbonate/vitamin D3 tablet PO SCH (08:41)
[2018-06-29] MEDS: apixaban 5mg tablet PO SCH (08:41)
[2018-06-29] MEDS: levoTHYROXINE 75mcg tablet PO SCH (08:41)
[2018-06-29] MEDS: pantoprazole 40mg Tablet.DR PO SCH (08:41)
[2018-06-29] MEDS: diltiazem CD 120mg capsule (once-daily) PO SCH (08:41)
[2018-06-29] MEDS: LORazepam 0.5 MG tablet PO SCH ×2 (08:41→12:26)
[2018-06-29] MEDS: sotalol 80mg tablet PO SCH (08:41)
[2018-06-29] MEDS: insulin Lispro (HumaLOG) vial - multi-dose SQ SCH ×2 (09:36→13:41)
[2018-06-29] MEDS: HYDROcodone/acetaminophen 10/325mg tab PO PRN (09:40)
[2018-06-29 11:00] VITALS: BP 133/91
[2018-06-29] MEDS ORDERED: APIX5TAB3 PO (12:30)
[2018-06-29] MEDS ORDERED: SOTA80TA73 PO (12:30)
== END 2018-06-29 15:47 | disposition home health service (06) | DRG 698 ==
LOC: ER 16:34 → ED HOLD 19:19 → PCU 3S 21:27
PROVIDERS: ADMIT Family Medicine; ATTEND Family Medicine
PROC: 02HV33Z Insertion of Infusion Device into Superior Vena Cava, Percutaneous Approach (ICD-10-PCS; principal; 2018-06-23)
DX: T83.511A Infection and inflammatory reaction due to indwelling urethral catheter, initial encounter (principal); A41.9 Sepsis, unspecified organism; J18.1 Lobar pneumonia, unspecified organism; G93.41 Metabolic encephalopathy; J44.0 Chronic obstructive pulmonary disease with (acute) lower respiratory infection; J44.1 Chronic obstructive pulmonary disease with (acute) exacerbation; I48.92 Unspecified atrial flutter; I50.32 Chronic diastolic (congestive) heart failure; N39.0 Urinary tract infection, site not specified; E78.00 Pure hypercholesterolemia, unspecified; B96.4 Proteus (mirabilis) (morganii) as the cause of diseases classified elsewhere; E03.9 Hypothyroidism, unspecified; E78.5 Hyperlipidemia, unspecified; E83.42 Hypomagnesemia; Z96.643 Presence of artificial hip joint, bilateral; Z96.651 Presence of right artificial knee joint; I11.0 Hypertensive heart disease with heart failure; I25.10 Atherosclerotic heart disease of native coronary artery without angina pectoris; I48.0 Paroxysmal atrial fibrillation; F32.9 Major depressive disorder, single episode, unspecified; E11.65 Type 2 diabetes mellitus with hyperglycemia; F41.9 Anxiety disorder, unspecified; R19.7 Diarrhea, unspecified; M06.9 Rheumatoid arthritis, unspecified; R09.02 Hypoxemia; E87.6 Hypokalemia; Y84.6 Urinary catheterization as the cause of abnormal reaction of the patient, or of later complication, without mention of misadventure at the time of the procedure; I25.2 Old myocardial infarction; Z90.710 Acquired absence of both cervix and uterus; Z98.51 Tubal ligation status; Z99.3 Dependence on wheelchair; Z74.01 Bed confinement status; Z99.81 Dependence on supplemental oxygen; Z88.1 Allergy status to other antibiotic agents; Z88.0 Allergy status to penicillin; Z88.2 Allergy status to sulfonamides; Z79.899 Other long term (current) drug therapy; Z79.4 Long term (current) use of insulin; Z79.01 Long term (current) use of anticoagulants; Z79.82 Long term (current) use of aspirin; Z86.711 Personal history of pulmonary embolism; Z86.718 Personal history of other venous thrombosis and embolism; Z87.891 Personal history of nicotine dependence; Z82.49 Family history of ischemic heart disease and other diseases of the circulatory system; Z83.3 Family history of diabetes mellitus; Z82.41 Family history of sudden cardiac death
CPT/HCPCS: 36415; 36556; 70450; 71045; 80053; 80162; 81001; 82948; 83036; 83605; 83735; 83880; 84100; 84484; 85025; 85610; 85730; 87040; 87070; 87077; 87088; 87186; 93005; 94640; 94667; 94760; 96365; 97162; 97530; 99285; G0378; J0456; J0696; J1815; J2060; J2270; J2405; J2930; J3475; J3490; J7030; J7626

== ENCOUNTER 2018-08-05 12:51 | Inpatient (IN) | payer MEDICARE, OTHER ==
[~2018-08-05] VITALS: Ht 149.9 cm; Wt 81.2 kg
[~2018-08-05 12:51] MED LIST changes: -ALBU8.5H8 IH; +APIX5TAB3 PO; -DIGO250T77 PO; +GABA800T11 PO; -GABA800T2 PO; -INSU100V5 IJ; +INSU100V5 SQ; +IRBE150T27 PO; -LEVO500T89 PO; +METH1TAB32 PO; +MULT-1085 PO; -NITR100C6 PO; -NYSPWD TP; +SOTA80TA73 PO; -VALS160T2 PO
[2018-08-05] MEDS ORDERED: normal saline 1000ML IV soln IV ONE ×2 (13:05→20:30)
[2018-08-05] MEDS ORDERED: ipratropium/albuterol 3ml nebule NEB ONE (14:15)
--- NOTE | 2018-08-05 14:37 | NUR ---
CHRISTIANO JEWELL INFORMED LABS CLOTTED; CHRISTIANO SEAMAN LABS AND IV ACCESS TO BE DRAWN FROM LEGS. BREAK OMAYRA FROST TRIED TO PLACE A RIGHT EJ AND A PIV WITHOUT SUCCESS
[2018-08-05 14:52] LABS: ALANINE AMINOTRANSFERASE 19 U/L (12-78); ALBUMIN 3.1 G/DL (3.4-5.0); ALBUMIN/GLOBULIN RATIO 0.7 (1.1-1.5); ALKALINE PHOSPHATASE 70 IU/L (46-116); ANION GAP 10 (8-16); ASPARTATE AMINO TRANSFERASE 15 U/L (10-37); BILIRUBIN,TOTAL 0.8 MG/DL (0.1-1.0); BLOOD UREA NITROGEN 7 MG/DL (7-18); BUN/CREATININE RATIO 10.3 (6.6-38.0); CALCIUM 9.8 MG/DL (8.5-10.1); CHLORIDE 88 MMOL/L (99-107); CREATININE 0.68 MG/DL (0.40-0.90); GLUCOSE 160 MG/DL (70-104); POTASSIUM 3.4 MMOL/L (3.5-5.1); SODIUM 129 MMOL/L (135-145); TOTAL CARBON DIOXIDE 31.2 MMOL/L (24-32); TOTAL PROTEIN 7.7 G/DL (6.4-8.2); eGFR 85 ML/MIN
[2018-08-05 14:56] LABS: INR 1.2 INR
[2018-08-05 15:03] LABS: BASOPHILS # (AUTO) 0.1 X10'3 (0-0.2); BASOPHILS % (AUTO) 0.7 % (0-1); EOSINOPHILS # (AUTO) 0.1 X10'3 (0-0.9); EOSINOPHILS % (AUTO) 0.5 % (0-6); HEMATOCRIT 38.7 % (35.0-45.0); HEMOGLOBIN 12.5 g/dl (12.0-16.0); LYMPHOCYTES # (AUTO) 2.2 X10'3 (1.1-4.8); LYMPHOCYTES % (AUTO) 15.5 % (21-51); MEAN CORPUSCULAR HEMOGLOBIN 26.5 PG (27.0-31.0); MEAN CORPUSCULAR HGB CONC 32.2 % (33.0-36.5); MEAN CORPUSCULAR VOLUME 82.3 FL (78-98); MEAN PLATELET VOLUME 8.9 FL (7.4-10.4); MONOCYTES # (AUTO) 1.4 X10'3 (0-0.9); MONOCYTES % (AUTO) 9.9 % (2-12); NEUTROPHILS # (AUTO) 10.6 X10'3 (1.8-7.7); NEUTROPHILS % (AUTO) 73.4 % (42-75); PLATELET COUNT 348 X10'3 (140-440); RED CELL DISTRIBUTION WIDTH 13.5 % (11.5-14.5); WHITE BLOOD COUNT 14.4 X10'3 (4.5-11.0)
[2018-08-05] MEDS ORDERED: DOXYCYCLINE 100MG CAPSULE PO STA (15:16)
[2018-08-05] MEDS: normal saline 1000ml 1,000 ML IV SCH (18:07)
[2018-08-05] MEDS ORDERED: acetaminophen 325mg tablet PO PRN (18:10)
[2018-08-05] MEDS ORDERED: potassium Cl 20 mEq SR tablet PO PRN (18:10)
[2018-08-05] MEDS ORDERED: magnesium 4gm in 100ml NS 100 ML IV PRN (18:10)
[2018-08-05] MEDS ORDERED: ondansetron/PF 4mg/2ml inj IV PRN (18:10)
[2018-08-05] MEDS ORDERED: potassium Cl 40MEQ/NS 500ml 500 ML IV PRN ×2 (18:10)
[2018-08-05] MEDS ORDERED: glucagon, human recombinant 1mg kit SUBCUT PRN (18:45)
[2018-08-05] MEDS ORDERED: dextrose 50%-water 50ml dispensing syringe IV PRN ×2 (18:45)
[2018-08-05] MEDS ORDERED: MESSAGE TO PHARMACY PO ONE (18:45)
[2018-08-05] MEDS ORDERED: dextrose ORAL solution 15 GM/59 ML bottle PO PRN ×2 (18:45)
[2018-08-05 19:26] LABS: CLARITY,URINE CLOUDY (Clear); COLOR,URINE YELLOW (Yellow); GLUCOSE, URINE NEGATIVE (Neg); KETONES,URINE NEGATIVE (Neg); LEUKOCYTE ESTERASE ,URINE LARGE (Neg); NITRITES, URINE NEGATIVE (Neg); OCCULT BLOOD,URINE LARGE (Neg); PH,URINE 6.5 (4.8-8.0); PROTEIN,URINE 30 mg/dl (Neg); UROBILINOGEN,URINE 0.2 E.U/dL (0.2-1.0)
[2018-08-05 19:29] LABS: UA COLLECTION TYPE FOLEY CATH
[2018-08-05 19:39] LABS: BACTERIA,URINE 4+ /HPF (Neg); SQUAMOUS EPITHELIAL CELL,UR FEW /LPF (FEW); WBC,URINE TNTC /HPF (0-4)
[2018-08-05 19:40] LABS: RBC,URINE 0-2 /HPF (0-2)
--- NOTE | 2018-08-05 20:35 | NUR ---
ATTEMPTED TO CALL REPORT, NO ANSWER
--- NOTE | 2018-08-05 21:00 | NUR ---
Received report from AUTOMATIC QUILLING MACHINE OPERATOR. Patient to follow shortly.
[2018-08-05] MEDS ORDERED: morphine 4 MG/ML inj SYRINge IV ONE (21:30)
[2018-08-05] MEDS ORDERED: HYDROcodone/acetaminophen 10/325mg tab PO ONE (21:30)
[2018-08-05] MEDS ORDERED: DIGO250T77 PO (21:41)
[2018-08-05] MEDS ORDERED: NYST1000 PO (21:42)
--- NOTE | 2018-08-05 21:45 | NUR ---
Patient arrived to floor from ER via [place]. Patient settled into room, bed low and rails x 2 up.
[2018-08-05 22:00] VITALS: BP 101/63
--- NOTE | 2018-08-05 22:35 | NUR ---
Patient is unable to get OOB without extensive assistance. Addendum: 08/06/18 at 0743 by Mel Alvarado RN Amended: Links added.
[2018-08-06] VITALS: BP 101/63
[2018-08-06] MEDS ORDERED: acetaminophen 325mg tablet PO PRN (01:45)
[2018-08-06] MEDS: normal saline 1000ml 1,000 ML IV SCH ×2 (01:50→14:24)
[2018-08-06 02:15] VITALS: BP 128/77
[2018-08-06] MEDS: HYDROcodone/acetaminophen 5mg/325mg tablet PO PRN ×2 (02:15→19:24)
[2018-08-06] MEDS ORDERED: normal saline 1000ml 1,000 ML IVB ONE ×2 (02:58→19:43)
--- NOTE | 2018-08-06 02:58 | NUR ---
WHILE PTS NURSE WAS AT [facility] HAD SOME SUSTAINED TACHYCARDIA AT 130-132. IS ON MANY HOME MEDS INCLUDING SEVERAL CARDIAC MEDS. SPOKE WITH DR. HOYT HE WILL ADDRESS HOME MEDS. V/S OTHERWISE STABLE B/P 128/77 RR 16 T98.3. WILL CONTINUE TO MONITOR.
--- NOTE | 2018-08-06 04:07 | NUR ---
Patient just returned backk from CT scan to head. Settled into room. PIcture to Carlota holbrook obtained. Lab in for am labs.
--- NOTE | 2018-08-06 04:17 | NUR ---
200cc pale yellow urine drained from 1hr . wants 0800 cardizem to be given now.
[2018-08-06] MEDS ORDERED: diltiazem CD 120mg capsule (once-daily) PO SCH (04:25)
[2018-08-06 05:11] LABS: BASOPHILS % (AUTO) 0.3 % (0-1); EOSINOPHILS # (AUTO) 0.1 X10'3 (0-0.9); EOSINOPHILS % (AUTO) 0.7 % (0-6); HEMOGLOBIN 10.6 g/dl (12.0-16.0); LYMPHOCYTES # (AUTO) 1.3 X10'3 (1.1-4.8); LYMPHOCYTES % (AUTO) 16.2 % (21-51); MEAN CORPUSCULAR HEMOGLOBIN 27.1 PG (27.0-31.0); MEAN CORPUSCULAR HGB CONC 33.1 % (33.0-36.5); MEAN CORPUSCULAR VOLUME 81.8 FL (78-98); MONOCYTES # (AUTO) 0.9 X10'3 (0-0.9); MONOCYTES % (AUTO) 11.4 % (2-12); NEUTROPHILS # (AUTO) 5.6 X10'3 (1.8-7.7); NEUTROPHILS % (AUTO) 71.4 % (42-75); PLATELET COUNT 158 X10'3 (140-440); RED BLOOD COUNT 3.91 X10'6 (4.20-5.60); RED CELL DISTRIBUTION WIDTH 12.9 % (11.5-14.5); WHITE BLOOD COUNT 7.9 X10'3 (4.5-11.0)
[2018-08-06 05:33] LABS: ALBUMIN 2.5 G/DL (3.4-5.0); ANION GAP 8 (8-16); BLOOD UREA NITROGEN 6 MG/DL (7-18); BUN/CREATININE RATIO 9.4 (6.6-38.0); CALCIUM 8.4 MG/DL (8.5-10.1); CHLORIDE 102 MMOL/L (99-107); CREATININE 0.64 MG/DL (0.40-0.90); GLUCOSE 231 MG/DL (70-104); MAGNESIUM 1.5 MG/DL (1.5-2.4); POTASSIUM 3.4 MMOL/L (3.5-5.1); SODIUM 139 MMOL/L (135-145); TOTAL CARBON DIOXIDE 29.2 MMOL/L (24-32); eGFR > 90 ML/MIN
[2018-08-06 05:38] LABS: CREATINE KINASE 91 U/L (26-192); PHOSPHORUS 2.9 MG/DL (2.3-4.5); TROPONIN I < 0.04 NG/ML (0.0-0.05)
[2018-08-06] MEDS: diltiazem CD 120mg capsule (once-daily) PO SCH (06:41)
[2018-08-06 07:00] VITALS: BP 111/69
--- NOTE | 2018-08-06 07:00 | NUR ---
Problems reprioritized. Patient report given, questions answered & plan of care reviewed with Trista CUTLER. As diltiazem given earlier by MD orders, non-admin for todays am dose at 8am.
--- NOTE | 2018-08-06 07:29 | NUR ---
RN skin assessment completed by RN and tack puller. Swelling and bruising to L foot. Picture taken and placed in chart. All other skin remains intact. Addendum: 08/06/18 at 0731 by Mel Alvarado RN Amended: Links added.
[2018-08-06] MEDS: pantoprazole 40mg Tablet.DR PO SCH ×3 (07:30→11:45)
[2018-08-06] MEDS: gabapentin 400mg capsule PO SCH ×5 (07:44→21:07)
[2018-08-06] MEDS: atorvastatin 20mg tablet PO SCH ×3 (07:44→11:45)
[2018-08-06] MEDS: duloxetine 30mg CAPSULE.DR PO SCH ×3 (07:45→11:45)
[2018-08-06] MEDS: digoxin 250mcg (0.25mg) tablet PO SCH ×3 (07:45→11:45)
[2018-08-06] MEDS: potassium Cl 20 mEq SR tablet PO PRN (07:45)
[2018-08-06] MEDS: K and/or MAG REPLACEMENT MC SCH (07:46)
[2018-08-06] MEDS: losartan 50mg tablet PO SCH ×3 (07:46→11:45)
[2018-08-06] MEDS: aspirin 325mg tablet PO SCH ×3 (07:47→11:45)
[2018-08-06 11:00] VITALS: BP 124/77
[2018-08-06] MEDS ORDERED: levoFLOXACIN 500mg tablet PO SCH (11:00)
[2018-08-06] MEDS ORDERED: LORazepam 2 mg/ml vial IM ONE (11:05)
[2018-08-06] MEDS: insulin Lispro (HumaLOG) vial - multi-dose SQ SCH ×2 (13:51→19:13)
[2018-08-06 18:00] VITALS: BP 125/95
[2018-08-06] MEDS: cefpodoxime proxetil 100mg tablet PO SCH (18:15)
--- NOTE | 2018-08-06 18:15 | NUR ---
Received report from primary care nurse Trista CUTLER. Assumed patient care. Patient is awake and alert on 3LNC in no apparent distress watching television. Call light and items of frequent use within reach.
--- NOTE | 2018-08-06 18:54 | NUR ---
Paged MD Medina regarding call from Tele box with patient HR in the 140s. Pending call back
[2018-08-06] MEDS ORDERED: normal saline 500ml IV soln 500 ML IV ONE (19:00)
[2018-08-06] MEDS ORDERED: LORazepam 2 mg/ml vial IV ONE (19:10)
[2018-08-06] MEDS: hydrOXYzine 25 MG tablet PO PRN (19:23)
[2018-08-06 20:25] LABS: TROPONIN I < 0.04 NG/ML (0.0-0.05)
[2018-08-06 20:36] LABS: CLARITY,URINE CLEAR (Clear); COLOR,URINE STRAW (Yellow); GLUCOSE, URINE 100 mg/dl (Neg); KETONES,URINE NEGATIVE (Neg); LEUKOCYTE ESTERASE ,URINE TRACE (Neg); NITRITES, URINE NEGATIVE (Neg); OCCULT BLOOD,URINE SMALL (Neg); PROTEIN,URINE NEGATIVE (Neg); UROBILINOGEN,URINE 0.2 E.U/dL (0.2-1.0)
[2018-08-06 20:40] LABS: UA COLLECTION TYPE FOLEY CATH
[2018-08-06 20:42] LABS: BACTERIA,URINE 1+ /HPF (Neg); RBC,URINE 0-2 /HPF (0-2); SQUAMOUS EPITHELIAL CELL,UR FEW /LPF (FEW); WBC,URINE 0-4 /HPF (0-4)
[2018-08-06] MEDS: insulin glargine (Lantus) pen - multi-dose SQ SCH ×2 (21:08)
[2018-08-07] VITALS: BP 129/82
[2018-08-07] MEDS: normal saline 1000ml 1,000 ML IV SCH (00:07)
[2018-08-07] MEDS: HYDROcodone/acetaminophen 5mg/325mg tablet PO PRN ×4 (00:50→21:31)
--- NOTE | 2018-08-07 06:15 | NUR ---
Patient in room [facility] 341. I have received report from OMAYRA Cota and had the opportunity to ask questions and assume patient care.
[2018-08-07 07:28] VITALS: BP 148/91
[2018-08-07] MEDS: K and/or MAG REPLACEMENT MC SCH (08:00)
[2018-08-07 08:18] LABS: BASOPHILS % (AUTO) 0.4 % (0-1); EOSINOPHILS # (AUTO) 0.2 X10'3 (0-0.9); EOSINOPHILS % (AUTO) 3.2 % (0-6); HEMATOCRIT 33.2 % (35.0-45.0); HEMOGLOBIN 10.5 g/dl (12.0-16.0); LYMPHOCYTES # (AUTO) 1.3 X10'3 (1.1-4.8); LYMPHOCYTES % (AUTO) 22.3 % (21-51); MEAN CORPUSCULAR HEMOGLOBIN 26.4 PG (27.0-31.0); MEAN CORPUSCULAR HGB CONC 31.7 % (33.0-36.5); MEAN CORPUSCULAR VOLUME 83.2 FL (78-98); MEAN PLATELET VOLUME 8.6 FL (7.4-10.4); MONOCYTES # (AUTO) 0.4 X10'3 (0-0.9); MONOCYTES % (AUTO) 7.6 % (2-12); NEUTROPHILS # (AUTO) 3.9 X10'3 (1.8-7.7); NEUTROPHILS % (AUTO) 66.5 % (42-75); PLATELET COUNT 178 X10'3 (140-440); RED BLOOD COUNT 3.99 X10'6 (4.20-5.60); RED CELL DISTRIBUTION WIDTH 13.5 % (11.5-14.5); WHITE BLOOD COUNT 5.8 X10'3 (4.5-11.0)
[2018-08-07] MEDS: aspirin 325mg tablet PO SCH (08:26)
[2018-08-07] MEDS: atorvastatin 20mg tablet PO SCH (08:26)
[2018-08-07] MEDS: duloxetine 30mg CAPSULE.DR PO SCH (08:26)
[2018-08-07] MEDS: insulin Lispro (HumaLOG) vial - multi-dose SQ SCH ×3 (08:26→19:08)
[2018-08-07] MEDS: pantoprazole 40mg Tablet.DR PO SCH (08:26)
[2018-08-07] MEDS: azithromycin 250mg tablet PO SCH (08:26)
[2018-08-07] MEDS: cefpodoxime proxetil 100mg tablet PO SCH ×2 (08:27→17:33)
[2018-08-07] MEDS: losartan 50mg tablet PO SCH (08:27)
[2018-08-07] MEDS: diltiazem CD 120mg capsule (once-daily) PO SCH (08:27)
[2018-08-07] MEDS: digoxin 250mcg (0.25mg) tablet PO SCH (08:28)
[2018-08-07] MEDS: gabapentin 400mg capsule PO SCH ×4 (08:28→21:31)
[2018-08-07 08:37] LABS: ALBUMIN 2.6 G/DL (3.4-5.0); ANION GAP 9 (8-16); BLOOD UREA NITROGEN 5 MG/DL (7-18); BUN/CREATININE RATIO 10.2 (6.6-38.0); CALCIUM 8.5 MG/DL (8.5-10.1); CHLORIDE 102 MMOL/L (99-107); CREATININE 0.49 MG/DL (0.40-0.90); GLUCOSE 168 MG/DL (70-104); MAGNESIUM 1.5 MG/DL (1.5-2.4); POTASSIUM 3.2 MMOL/L (3.5-5.1); SODIUM 141 MMOL/L (135-145); TOTAL CARBON DIOXIDE 30.4 MMOL/L (24-32); TROPONIN I < 0.04 NG/ML (0.0-0.05); eGFR > 90 ML/MIN
[2018-08-07] MEDS: hydrOXYzine 25 MG tablet PO PRN ×2 (08:46→17:26)
[2018-08-07] MEDS: potassium Cl 20 mEq SR tablet PO PRN ×3 (08:54→23:58)
[2018-08-07] MEDS ORDERED: AZI25OT PO (10:55)
[2018-08-07] MEDS ORDERED: POTA20TA19 PO (10:55)
[2018-08-07] MEDS ORDERED: CEFP100T7 PO (10:55)
[2018-08-07 11:00] VITALS: BP 127/79
--- NOTE | 2018-08-07 15:01 | NUR ---
Calorie count received as an error. Patient is eating 100%. Noted A1C is 7 however patient documented as confused and currently not appropriate for education. Education is deferred until patient is able. Addendum: 08/07/18 at [address] Amended: Links added.
[2018-08-07 18:00] VITALS: BP 147/72
--- NOTE | 2018-08-07 18:40 | NUR ---
Problems reprioritized. Patient report given, questions answered & plan of care reviewed with Jany Schilling RN.
[2018-08-07] MEDS: lactobacillus rhamnosus 10,000 MMU CELLS/CAPSULE PO SCH (19:08)
[2018-08-07] MEDS: insulin glargine (Lantus) pen - multi-dose SQ SCH (21:39)
[2018-08-07] MEDS: HYDROcodone/acetaminophen 10/325mg tab PO PRN (23:59)
[2018-08-08] VITALS: BP 150/77
[2018-08-08] MEDS: hydrOXYzine 25 MG tablet PO PRN ×2 (01:15→13:04)
[2018-08-08] MEDS: HYDROcodone/acetaminophen 10/325mg tab PO PRN ×3 (04:10→13:04)
--- NOTE | 2018-08-08 06:30 | NUR ---
Patient in room [facility] 341. I have received report from Jany Ramirez RN and had the opportunity to ask questions and assume patient care.
--- NOTE | 2018-08-08 06:31 | NUR ---
Problems reprioritized. Patient report given, questions answered & plan of care reviewed with OMAYRA Olson.
[2018-08-08 07:05] LABS: ALBUMIN 2.7 G/DL (3.4-5.0); ANION GAP 5 (8-16); BLOOD UREA NITROGEN 8 MG/DL (7-18); CALCIUM 9.1 MG/DL (8.5-10.1); CHLORIDE 100 MMOL/L (99-107); CREATININE 0.47 MG/DL (0.40-0.90); GLUCOSE 157 MG/DL (70-104); MAGNESIUM 1.7 MG/DL (1.5-2.4); POTASSIUM 3.8 MMOL/L (3.5-5.1); SODIUM 139 MMOL/L (135-145); TOTAL CARBON DIOXIDE 33.6 MMOL/L (24-32); eGFR > 90 ML/MIN
[2018-08-08 07:08] LABS: BASOPHILS % (AUTO) 0.4 % (0-1); EOSINOPHILS # (AUTO) 0.3 X10'3 (0-0.9); EOSINOPHILS % (AUTO) 4.2 % (0-6); HEMATOCRIT 34.9 % (35.0-45.0); HEMOGLOBIN 11.2 g/dl (12.0-16.0); LYMPHOCYTES % (AUTO) 26.1 % (21-51); MEAN CORPUSCULAR HEMOGLOBIN 26.4 PG (27.0-31.0); MEAN CORPUSCULAR HGB CONC 32.1 % (33.0-36.5); MEAN CORPUSCULAR VOLUME 82.2 FL (78-98); MEAN PLATELET VOLUME 8.1 FL (7.4-10.4); MONOCYTES # (AUTO) 0.6 X10'3 (0-0.9); MONOCYTES % (AUTO) 8.5 % (2-12); NEUTROPHILS # (AUTO) 4.5 X10'3 (1.8-7.7); NEUTROPHILS % (AUTO) 60.8 % (42-75); PLATELET COUNT 227 X10'3 (140-440); RED BLOOD COUNT 4.25 X10'6 (4.20-5.60); RED CELL DISTRIBUTION WIDTH 14.1 % (11.5-14.5); WHITE BLOOD COUNT 7.5 X10'3 (4.5-11.0)
[2018-08-08 08:00] VITALS: BP 151/86
[2018-08-08] MEDS: K and/or MAG REPLACEMENT MC SCH (08:00)
[2018-08-08] MEDS: cefpodoxime proxetil 100mg tablet PO SCH (08:23)
[2018-08-08] MEDS: lactobacillus rhamnosus 10,000 MMU CELLS/CAPSULE PO SCH (08:23)
[2018-08-08] MEDS: aspirin 325mg tablet PO SCH (08:23)
[2018-08-08] MEDS: azithromycin 250mg tablet PO SCH (08:23)
[2018-08-08] MEDS: pantoprazole 40mg Tablet.DR PO SCH (08:23)
[2018-08-08] MEDS: diltiazem CD 120mg capsule (once-daily) PO SCH (08:24)
[2018-08-08] MEDS: duloxetine 30mg CAPSULE.DR PO SCH (08:24)
[2018-08-08] MEDS: gabapentin 400mg capsule PO SCH ×2 (08:24→12:12)
[2018-08-08] MEDS: atorvastatin 20mg tablet PO SCH (08:24)
[2018-08-08] MEDS: losartan 50mg tablet PO SCH (08:25)
[2018-08-08] MEDS: digoxin 250mcg (0.25mg) tablet PO SCH (08:26)
[2018-08-08] MEDS: insulin Lispro (HumaLOG) vial - multi-dose SQ SCH ×2 (08:35→13:08)
[2018-08-08 11:00] VITALS: BP 149/85
--- NOTE | 2018-08-08 13:45 | NUR ---
Report given to EMILY Gilmore at [facility]. all questions answered, surgical phone number left with CIRCULAR SAW FILER.
--- NOTE | 2018-08-08 14:30 | NUR ---
Patient transported by [employer] personnel, with oxygen via NC at 2L, patient stable, pleasant, and transported safely out of the unit via gurney and [employer], along with all patient belongings.
== END 2018-08-08 14:25 | DRG 871 ==
LOC: ER 12:52 → ED HOLD 18:07 → SUR 3N 21:45
PROVIDERS: ADMIT Internal Medicine; ATTEND Internal Medicine
DX: A41.9 Sepsis, unspecified organism (principal); J18.9 Pneumonia, unspecified organism; G93.41 Metabolic encephalopathy; J44.0 Chronic obstructive pulmonary disease with (acute) lower respiratory infection; J44.1 Chronic obstructive pulmonary disease with (acute) exacerbation; N39.0 Urinary tract infection, site not specified; E87.1 Hypo-osmolality and hyponatremia; E03.9 Hypothyroidism, unspecified; E78.00 Pure hypercholesterolemia, unspecified; E78.5 Hyperlipidemia, unspecified; E86.0 Dehydration; E87.6 Hypokalemia; I48.0 Paroxysmal atrial fibrillation; J20.9 Acute bronchitis, unspecified; F32.9 Major depressive disorder, single episode, unspecified; F41.9 Anxiety disorder, unspecified; M19.90 Unspecified osteoarthritis, unspecified site; M06.9 Rheumatoid arthritis, unspecified; I10 Essential (primary) hypertension; E11.9 Type 2 diabetes mellitus without complications; R09.02 Hypoxemia; S93.602A Unspecified sprain of left foot, initial encounter; W18.39XA Other fall on same level, initial encounter; Z99.3 Dependence on wheelchair; Z99.81 Dependence on supplemental oxygen; Z88.0 Allergy status to penicillin; Z88.2 Allergy status to sulfonamides; Z88.1 Allergy status to other antibiotic agents; Z88.8 Allergy status to other drugs, medicaments and biological substances; Z79.899 Other long term (current) drug therapy; Z79.890 Hormone replacement therapy; Z79.82 Long term (current) use of aspirin; Z79.4 Long term (current) use of insulin; Z86.711 Personal history of pulmonary embolism; Z87.891 Personal history of nicotine dependence; Z82.41 Family history of sudden cardiac death; Z82.49 Family history of ischemic heart disease and other diseases of the circulatory system; Z83.3 Family history of diabetes mellitus; Y93.89 Activity, other specified; Y92.89 Other specified places as the place of occurrence of the external cause; Y99.8 Other external cause status
CPT/HCPCS: 36415; 70450; 71045; 73620; 80048; 80053; 81001; 82550; 82948; 83605; 83735; 83880; 84100; 84145; 84484; 85025; 85610; 87040; 87070; 87077; 87088; 87186; 87502; 87503; 93005; 94640; 94760; 96360; 96361; 97161; 97530; 99285; G0378; J1815; J2060; J7030; Q0177

== ENCOUNTER 2018-11-19 18:21 | Emergency (ER) | payer MEDICARE, OTHER ==
[~2018-11-19] VITALS: Ht 149.9 cm; Wt 63.6 kg
[~2018-11-19 18:21] MED LIST changes: -ATOR40TA3 PO; +ATOR40TA7 PO; +AZI25OT PO; -BUPR300T53 PO; +CEFP100T7 PO; +DIGO250T77 PO; -ESOM40CA30 PO; +ESOM40CA49 PO; -HYDR-3686 PO; -POTA10TA15 PO; -SOTA80TA73 PO; -SPIIN INH
--- NOTE | 2018-11-19 19:07 | NUR ---
xray in room
[2018-11-19 20:25] VITALS: BP 114/79
[2018-11-19] MEDS ORDERED: HYDROcodone/acetaminophen 10/325mg tab PO ONE (20:40)
== END 2018-11-19 21:47 | disposition home or self-care (01) ==
LOC: ER 18:22
DX: S62.392A Other fracture of third metacarpal bone, right hand, initial encounter for closed fracture (principal); E78.00 Pure hypercholesterolemia, unspecified; I10 Essential (primary) hypertension; J44.9 Chronic obstructive pulmonary disease, unspecified; E11.9 Type 2 diabetes mellitus without complications; E03.9 Hypothyroidism, unspecified; M19.90 Unspecified osteoarthritis, unspecified site; Z88.0 Allergy status to penicillin; Z88.2 Allergy status to sulfonamides; Z88.1 Allergy status to other antibiotic agents; Z79.01 Long term (current) use of anticoagulants; Z79.82 Long term (current) use of aspirin; Z79.4 Long term (current) use of insulin; Z79.899 Other long term (current) drug therapy; W06.XXXA Fall from bed, initial encounter; Y93.89 Activity, other specified; Y92.89 Other specified places as the place of occurrence of the external cause; Y99.8 Other external cause status
CPT/HCPCS: 29125; 73090; 73130; 99284

== ENCOUNTER 2018-12-03 19:55 | Inpatient (IN) | payer MEDICARE, OTHER | END 2018-12-10 17:20 | LOC: SUR 3N 12-09 10:52 → ER 19:55 → SUR 3N 12-05 16:51 → ICU 2S 12-04 08:54 | DX: A41.9 Sepsis, unspecified organism (principal); J96.00 Acute respiratory failure, unspecified whether with hypoxia or hypercapnia; J44.1 Chronic obstructive pulmonary disease with (acute) exacerbation; N39.0 Urinary tract infection, site not specified; R41.82 Altered mental status, unspecified; M06.9 Rheumatoid arthritis, unspecified; I71.9 Aortic aneurysm of unspecified site, without rupture; I48.91 Unspecified atrial fibrillation ==